=== PATIENT | female | born 1945 | race Caucasian/White ===

== ENCOUNTER 2016-12-26 11:55 | Observation (INO) | payer OTHER ==
[2016-12-26 12:39] LABS: BASOPHIL 1.4 % (0-2.0); EOSINOPHIL 4.2 % (0-4.5); MCH 33.1 pg (25.7-33.7); MCHC 34.2 g/dl (32.0-36.0); MEAN CELL VOLUME 96.8 fl (80-96); MEAN PLT VOLUME 8.1 fl (7.5-11.1); NEUTROPHILS 51.5 % (42.8-82.8); PLATELET COUNT 210 K/MM3 (134-434); RDW 12.3 % (11.6-15.6); WHITE BLOOD COUNT 6.4 K/mm3 (4.0-10.0)
[2016-12-26] MEDS ORDERED: ACETAMINOPHEN 325 MG TABLET (FP) PO ONE (12:44)
--- NOTE | 2016-12-26 12:45 | PDOC ---
History of Present Illness - General History Source: Patient Exam Limitations: No Limitations - History of Present Illness Initial Comments: 12/26/16 12:53 The patient is a 71-year-old woman, accompanied by son, with a significant past medical history of hypertension, hypercholesterolemia, atrial fibrillation and brain aneurysm s/p clipping (09/2015) who presents to the emergency department via for further evaluation of right wrist and ankle pain status post walk this morning. No head injury and loss of consciousness. As per patient, she woke up in her usual state of health this morning, when she proceeded to do laundry. She was stepping out of the laundry room, got distracted looking at her neighbors decorations, when she missed a step and fell on her right side. She states that she called her son and was able to ambulate to the car and proceed to the ER. Pt states she was feeling well this morning otherwise, denies any headache, dizziness, cp, sob, palpitations, f/c, cough, diarrhea, melena/bpr. Upon ER arrival, at triage, the patient was noted to be lightheaded and bradycardic to 47 bpm and hypotensive to 60/40. As per patient, since her brain aneurysm, she had been compliant with her rehabilitation and has been asymptomatic. She denies any recent fevers, chills, generalized weakness, chest pain, dizziness, visual changes, headache, cough, shortness of breath, nausea, vomiting. Allergies: Quinidine Past Surgical History: Hysterectomy. Social History: No tobacco, ETOH and recreational drug use. Primary Care Physician: Dr. Ankush Perry [phone]/ Student Success Advisor: Dr. Howe (Affiliated with [facility]) <Maren Arndt - Last Filed: 12/26/16 14:19> <Rolando Alegre - Last Filed: 12/26/16 16:18> <Nicolás Fitch - Last Filed: 12/26/16 16:28> - General Chief Complaint: Injury Stated Complaint: FALL/ RT WRIST PAIN, DISORIENTED Time Seen by Provider: 12/26/16 12:13 Past History <Maren Arndt - Last Filed: 12/26/16 14:19> - Past Medical History Cardiac Disorders: Yes (PALPITATIONS, NEGATIVE NUCLEAR STRESS TEST,a.fib) GI Disorders: Yes (GERD, PUD 1994. BLOOD TRANSFUSION) HTN: Yes Other medical history: ruptured brain aneurysm - Surgical History Neurologic Surgery: Yes (brain aneurysm) - Psycho/Social/Smoking Cessation Hx Anxiety: No Suicidal Ideation: No Smoking History: Unknown if ever smoked Have you smoked in the past 12 months: No If you are a former smoker, when did you quit?: 27 YEARS AGO Information on smoking cessation initiated: No Hx Alcohol Use: No Drug/Substance Use Hx: No Substance Use Type: None Hx Substance Use Treatment: No <SisBijuRolando - Last Filed: 12/26/16 16:18> <Nicolás Fitch - Last Filed: 12/26/16 16:28> - Past Medical History Allergies/Adverse Reactions: Allergies Allergy/AdvReac Type Severity Reaction Status Date / Time quinidine Allergy Mild Rash Verified 12/26/16 12:02 Home Medications: Ambulatory Orders Apixaban [Eliquis] 5 mg PO BID 12/26/16 Diltiazem Cd [Cardizem Cd -] 240 mg PO DAILY 12/26/16 Levetiracetam [Keppra Xr -] 500 mg PO DAILY 12/26/16 Metoprolol Succinate [Toprol Xl] 100 mg PO BID 12/26/16 Review of Systems - Review of Systems Able to Perform ROS?: Yes Comments:: 12/26/16 12:54 CONSTITUTIONAL: No reported: Fever, Chills, Diaphoresis, Generalized Weakness, Malaise, Loss of Appetite HEENT: No reported: Rhinorrhea, Nasal Congestion, Throat Pain, Throat Swelling, Difficulty Swallowing, Mouth Swelling, Ear Pain, Eye Pain, Visual Changes CARDIOVASCULAR: No reported: Chest Pain, Syncope, Palpitations, Irregular Heart Rate, Lightheadedness, Peripheral Edema RESPIRATORY: No reported: Cough, Shortness of Breath, SOB with Exertion, Orthopnea, Wheezing , Stridor, Hemoptysis GASTROINTESTINAL: No reported: Abdominal pain, Abdominal Distension, Nausea, Vomiting, Diarrhea, Constipation, Melena, Hematochezia GENITOURINARY: No reported: Dysuria, Frequency, Urgency, Hesitancy, Flank Pain, Genital Pain MUSCULOSKELETAL: Reported: Arthralgia No reported: Myalgia, Joint Swelling, Back pain, Neck Pain SKIN: No reported: Rash, Itching, Pallor HEMEATOLOGIC/IMMUNOLOGIC: No reported: Easy Bleeding, Easy Bruising, Lymphadenopathy, Frequent infections ENDOCRINE: No reported: Unexplained Weight Gain, Unexplained Weight Loss, Heat Intolerance , Cold Intolerance NEUROLOGIC: No reported: Headache, Focal Weakness, Paresthesias, Vertigo, Lightheadedness, Unsteady Gait, Seizure, Mental Status Changes, Incontinence PSYCHIATRIC: No reported: Anxiety, Depression <Arndt,Maren - Last Filed: 12/26/16 14:19> *Physical Exam - Vital Signs Last Vital Signs Temp Pulse Resp BP Pulse Ox 98.4 F 47 L 18 104/49 100 12/26/16 12:04 12/26/16 12:04 12/26/16 12:04 12/26/16 12:04 12/26/16 12:04 - Physical Exam Comments: 12/26/16 12:54 GENERAL: The patient is awake, alert, and fully oriented, Nontoxic - in no acute distress. HEAD: Normocephalic, atraumatic. EYES: extraocular movements intact, sclera anicteric, conjunctiva clear. BACK: No tenderness to cervical/throaicic/lumbar spine ENT: Normal voice, Moist mucous membranes. NECK: Normal range of motion, supple LUNGS: Breath sounds equal, clear to auscultation bilaterally. No wheezes, no rhonchi, no rales. HEART: irregular, bradycardic ABDOMEN: Soft, nontender, normoactive bowel sounds. No guarding, no rebound.No CVA tenderness EXTREMITIES: TTP with swelling to R wrist, and pain with ROM abrasion to volar aspect of R wrist and R pinky, no tenderness in the hand/fingers and no limitations of ROM of hand/fingers, +mild tenderness to the latareal right 5the metatarsal foot/ankle, normal ROM of other joints (shoulder/elbow b/l, L hand, b/l hips/knee/ankle) NEUROLOGICAL: No facial assymetry, Normal speech, movinga ll 4 extremities spontnaoeelys and symmetrically. n/v intact throughout. PSYCH: Normal mood, normal affect. SKIN: Warm, Dry, normal turgor. <Arndt,Maren - Last Filed: 12/26/16 14:19> - Vital Signs Last Vital Signs Temp Pulse Resp BP Pulse Ox 98.4 F 47 L 18 104/49 100 12/26/16 12:04 12/26/16 12:04 12/26/16 12:04 12/26/16 12:04 12/26/16 12:04 <Rolando Alegre - Last Filed: 12/26/16 16:18> - Vital Signs Last Vital Signs Temp Pulse Resp BP Pulse Ox 98.4 F 47 L 18 104/49 100 12/26/16 12:04 12/26/16 12:04 12/26/16 12:04 12/26/16 12:04 12/26/16 12:04 <Nicolás Fitch - Last Filed: 12/26/16 16:28> Procedures - Splinting Splint Location: Right: Wrist (volar splitn placed) Pre-Proc Neuro Vasc Exam: normal Splint Type: Yes: Volar Post-Proc Neuro Vasc Exam: normal Andres Bandage: 4" Sling: Yes Complications: No <Nicolás Fitch - Last Filed: 12/26/16 16:28> Heart Score/ECG Review - ECG Impressions Comment:: 12/26/16 12:46 Twelve-lead EKG was performed and reviewed by me. There is normal sinus rhythm with a rate of 56 The axis is normal. The intervals are normal. There is abnormal R wave progression There are no ST or T wave abnormalities. <Rolando Alegre - Last Filed: 12/26/16 16:18> ED Treatment Course - LABORATORY CBC & Chemistry Diagram: 12/26/16 12:10 12/26/16 12:10 - ADDITIONAL ORDERS Additional order review: 12/26/16 12:10 RBC 3.61 MCV 96.8 H MCHC 34.2 RDW 12.3 MPV 8.1 Neutrophils % 51.5 Lymphocytes % 35.5 D Monocytes % 7.4 Eosinophils % 4.2 D Basophils % 1.4 - Medications Given in the ED: ED Medications Discontinued Medications Generic Name Dose Route Start Last Admin Trade Name Vikasq PRN Reason Stop Dose Admin Acetaminophen 650 mg 12/26/16 12:44 12/26/16 12:52 Tylenol - PO 12/26/16 12:45 650 mg ONCE ONE Administration <Maren Arndt - Last Filed: 12/26/16 14:19> - LABORATORY CBC & Chemistry Diagram: 12/26/16 12:10 12/26/16 12:10 - RADIOLOGY Radiology Studies Ordered: Category Date Time Status ANKLE & FOOT-LEFT* [RAD] Stat Radiology 12/26/16 12:37 Ordered WRIST W/HAND-RIGHT* [RAD] Stat Radiology 12/26/16 12:37 Ordered <Rolando Alegre - Last Filed: 12/26/16 16:18> - LABORATORY CBC & Chemistry Diagram: 12/26/16 12:10 12/26/16 12:10 - ADDITIONAL ORDERS Additional order review: Laboratory Results 12/26/16 12/26/16 12/26/16 12:10 12:10 12:10 INR 1.24 H Sodium 143 Potassium 4.1 D Chloride 106 Carbon Dioxide 28 Anion Gap 9 BUN 22 H Creatinine 0.9 Creat Clearance w eGFR > 60 Random Glucose 117 H D Calcium 8.4 L Total Bilirubin 0.3 D AST 11 L D ALT 16 D Alkaline Phosphatase 72 Creatine Kinase 61 Troponin I < 0.02 Total Protein 6.3 L Albumin 3.4 Blood Type A POSITIVE Antibody Screen Negative 12/26/16 12:10 RBC 3.61 MCV 96.8 H MCHC 34.2 RDW 12.3 MPV 8.1 Neutrophils % 51.5 Lymphocytes % 35.5 D Monocytes % 7.4 Eosinophils % 4.2 D Basophils % 1.4 - Medications Given in the ED: ED Medications Discontinued Medications Generic Name Dose Route Start Last Admin Trade Name Freq PRN Reason Stop Dose Admin Acetaminophen 650 mg 12/26/16 12:44 12/26/16 12:52 Tylenol - PO 12/26/16 12:45 650 mg ONCE ONE Administration <Nicolás Fitch - Last Filed: 12/26/16 16:28> Medical Decision Making - Medical Decision Making 12/26/16 12:39 71y F hx of aneurysm s/p clipping, afib on eliquis and metoprolol, presents s/p fall - was noted to be bradycardic and hyptonsive in triage and presents to the ED s/p mechanical fall - pt states she wa felling well prior to her fall and pt endorses missing a step when she was looking up at decoration - pt denies any head injury, loc, back pain, neuro sypmtoms andher pain is primarily in her L wrist and R ankle no head injury nmeck pain, back pain or signs of trauma/loc - will defer CT head , cspine will obtain xrays of her wrist/ankle will ck ekg will ck la work and will give pt fluids will reassess A portion of this note was documented by scribe services under my direction. I have reviewed the details of the note, within reason, and agree with the documentation with the following case summary and management plan written by me 12/26/16 12:47 12/26/16 14:52 xrays cw impacted radial fx of R wrist also noted for fx on R 5th metatarsal fx unsfe d/c will admit for further management page placed to dr suarez and dr. ibarra 12/26/16 15:[address] suarez agree with admission for further management will discuss with dr. ibarra - if planned for surgery will admit otherwise will observe. Case discussed in detail with admitting physician including history, physical exam and ancillary studies. Admitting physician has assumed care for the patient, will follow all pending diagnostics and will complete the evaluation and treatment. <Rolando Alegre - Last Filed: 12/26/16 16:18> - Medical Decision Making 12/26/16 16:26 Ortho at bedside, rec volar splint and for pt to f/u for possible surgery. Hard sole shoe placed for fx to proximal R 5th metatarsal 12/26/16 16:27 <Nicolás Fitch - Last Filed: 12/26/16 16:28> *DC/Admit/Observation/Transfer - Attestations Scribe Attestion: 12/26/16 12:54 Documentation prepared by Maren Arndt, acting as medical editor for Rolando Alegre MD. <Maren Arndt - Last Filed: 12/26/16 14:19> - Discharge Dispostion Admit: Yes <Rolando Alegre - Last Filed: 12/26/16 16:18> <Nicolás Fitch - Last Filed: 12/26/16 16:28> Diagnosis at time of Disposition: Wrist fracture, right Qualifiers: Encounter type: initial encounter Fracture type: closed Qualified Code(s): S62.101A - Fracture of unspecified carpal bone, right wrist, initial encounter for closed fracture Fracture of 5th metatarsal Qualifiers: Encounter type: initial encounter Fracture type: closed Fracture alignment: nondisplaced Laterality: right Qualified Code(s): S92.354A - Nondisplaced fracture of fifth metatarsal bone, right foot, initial encounter for closed fracture - Discharge Dispostion Condition at time of disposition: Stable - Referrals
[2016-12-26] MEDS ORDERED: ACETAMINOPHEN 325 MG TABLET (FP) ONE (12:52)
[2016-12-26 13:02] LABS: INR 1.24 (0.82-1.09); PROTHROMBIN TIME (PATIENT) 13.7 SEC (9.98-11.88)
[2016-12-26 13:09] LABS: ALBUMIN 3.4 g/dl (3.4-5.0); ALK PHOS 72 U/L (45-117); ANION GAP 9 (8-16); BILIRUBIN,TOTAL 0.3 mg/dL (0.2-1.0); CALCIUM 8.4 mg/dL (8.5-10.1); CO2 28 mmol/L (21-32); CREATININE 0.9 mg/dL (0.55-1.02); GLUCOSE,RANDOM 117 mg/dL (74-106); SGPT/ALT 16 U/L (12-78); TOT PROT 6.3 g/dl (6.4-8.2)
[2016-12-26 13:11] LABS: TROPONIN I < 0.02 ng/ml (0.00-0.05)
[2016-12-26 13:13] LABS: SGOT/AST 11 U/L (15-37)
[2016-12-26] MEDS ORDERED: ONDANSETRON 4 MG/2 ML VIAL IVPB PRN (16:17)
--- NOTE | 2016-12-26 16:19 | HP ---
Admitting History and Physical - Primary Care Physician PCP: Ankush Perry - Admission Chief Complaint: I fell History of Present Illness: Ms Crow is a very pleasant 71 year old female who came in secondary to a fall. She was walking down the stairs and misjudged the last step. She fell and hit her right side. She did not hit her head. She says it was purely mechanical, she was not lightheaded or passed out. After this she felt significant pain in her R side and could not walk. Because of this she came in. She denies fevers, chills, chest pain, shortness of breath, nausea, vomiting, diarrhea, constipation, difficulty or pain on urination, or swelling. She is still having pain but it is better controlled. History Source: Patient Limitations to Obtaining History: No Limitations - Past Medical History Cardiovascular: Yes: AFIB, HTN Gastrointestinal: Yes: GERD - Past Surgical History Past Surgical History: Yes: Hysterectomy Additional Past Surgical History: Cerebral aneurysm repair after rupture - Smoking History Smoking history: Former smoker Have you smoked in the past 12 months: No If you are a former smoker, when did you quit?: 27 YEARS AGO - Alcohol/Substance Use Hx Alcohol Use: No History of Substance Use: reports: None - Social History ADL: Independent History of Recent Travel: No Home Medications - Allergies Allergies/Adverse Reactions: Allergies Allergy/AdvReac Type Severity Reaction Status Date / Time quinidine Allergy Mild Rash Verified 12/26/16 12:02 - Home Medications Home Medications: Ambulatory Orders Apixaban [Eliquis] 5 mg PO BID 12/26/16 Diltiazem Cd [Cardizem Cd -] 240 mg PO DAILY 12/26/16 Levetiracetam [Keppra Xr -] 500 mg PO DAILY 12/26/16 Metoprolol Succinate [Toprol Xl] 100 mg PO BID 12/26/16 Family Disease History - Family Disease History Family Disease History: CA: Father Review of Systems Findings/Remarks: full review of systems obtained, as per HPI and otherwise negative Physical Examination Vital Signs: Vital Signs Temperature 98.4 F 12/26/16 12:04 Pulse Rate 47 L 12/26/16 12:04 Respiratory Rate 18 12/26/16 12:04 Blood Pressure 104/49 12/26/16 12:04 O2 Sat by Pulse Oximetry (%) 100 12/26/16 12:04 Constitutional: Yes: Well Nourished, No Distress, Calm Eyes: Yes: Conjunctiva Clear, EOM Intact HENT: Yes: Atraumatic, Normocephalic Cardiovascular: Yes: Pulse Irregular. No: Bradycardia, Tachycardia, Gallop, Murmur, Rub Respiratory: Yes: Regular, CTA Bilaterally. No: Rales, Rhonchi, Wheezes Gastrointestinal: Yes: Normal Bowel Sounds, Soft. No: Distention, Tenderness Extremities: Yes: WNL Edema: No Labs: Laboratory Results - last 24 hr 12/26/16 12/26/16 12/26/16 12:10 12:10 12:10 WBC 6.4 RBC 3.61 Hgb 11.9 Hct 35.0 MCV 96.8 H MCHC 34.2 RDW 12.3 Plt Count 210 MPV 8.1 Neutrophils % 51.5 Lymphocytes % 35.5 D Monocytes % 7.4 Eosinophils % 4.2 D Basophils % 1.4 INR 1.24 H Sodium 143 Potassium 4.1 D Chloride 106 Carbon Dioxide 28 Anion Gap 9 BUN 22 H Creatinine 0.9 Creat Clearance w eGFR > 60 Random Glucose 117 H D Calcium 8.4 L Total Bilirubin 0.3 D AST 11 L D ALT 16 D Alkaline Phosphatase 72 Creatine Kinase 61 Troponin I < 0.02 Total Protein 6.3 L Albumin 3.4 Blood Type Antibody Screen 12/26/16 12:10 WBC RBC Hgb Hct MCV MCHC RDW Plt Count MPV Neutrophils % Lymphocytes % Monocytes % Eosinophils % Basophils % INR Sodium Potassium Chloride Carbon Dioxide Anion Gap BUN Creatinine Creat Clearance w eGFR Random Glucose Calcium Total Bilirubin AST ALT Alkaline Phosphatase Creatine Kinase Troponin I Total Protein Albumin Blood Type A POSITIVE Antibody Screen Negative Imaging - Results Chest X-ray: Report Reviewed, Image Reviewed X-ray: Report Reviewed Problem List - Problems (1) Fall Assessment/Plan: -mechanical -no syncope, head trauma, or loss of consciousness -admit under observation -PT consult Code(s): W19.XXXA - UNSPECIFIED FALL, INITIAL ENCOUNTER Qualifiers: Encounter type: initial encounter Qualified Code(s): W19.XXXA - Unspecified fall, initial encounter (2) Fracture of 5th metatarsal Assessment/Plan: -ortho consulted and await recommendations Code(s): S92.353A - DISP FX OF FIFTH METATARSAL BONE, UNSP FOOT, INIT Qualifiers: Encounter type: initial encounter Fracture type: closed Fracture alignment: nondisplaced Laterality: right Qualified Code(s): S92.354A - Nondisplaced fracture of fifth metatarsal bone, right foot, initial encounter for closed fracture (3) Wrist fracture, right Assessment/Plan: -ortho consulted and await recommendations Code(s): S62.101A - FRACTURE OF UNSP CARPAL BONE, RIGHT WRIST, INIT FOR CLOS FX Qualifiers: Encounter type: initial encounter Fracture type: closed Qualified Code(s): S62.101A - Fracture of unspecified carpal bone, right wrist, initial encounter for closed fracture (4) HTN (hypertension) Assessment/Plan: -continue metoprolol and cardizem with hold precautions Code(s): I10 - ESSENTIAL (PRIMARY) HYPERTENSION (5) Atrial fibrillation Assessment/Plan: -rate controlled -holding eliquis secondary to possible surgery -continue metoprolol and cardizem -no need for telemetry Code(s): I48.91 - UNSPECIFIED ATRIAL FIBRILLATION Qualifiers: Atrial fibrillation type: chronic Qualified Code(s): I48.2 - Chronic atrial fibrillation (6) Subarachnoid hemorrhage Assessment/Plan: -history -no head trauma and normal exam Code(s): I60.9 - NONTRAUMATIC SUBARACHNOID HEMORRHAGE, UNSPECIFIED
--- NOTE | 2016-12-26 16:57 | PN ---
Progress Note (short form) - Note Progress Note: Pt seen and examined in the ER. She uis a 71 right hand dom Female who fell a few hours ago onto her right arm. She c/o severe pain in the right wrist, moderate pain in the right foot. She is on Eliquis anticoagulant, last took it yesterday, for a cerebral aneurysm. PE Right wrist is mildly deformed, moderately swollen NVI, good ROM throughout + tender over wrist Right foot is mildly swollen + tender over base of 4th and 5th MT Good ROM Grossly NVI Xrays Right wrist show a comminuted, displaced, intra articular distal radius fracture Right foot show a nondisplaced fx at the base of the 4th and 5th MT Imp Right distal radius fracture, displaced, intra articular, comminuted Right foot fractures at the base of the 4th and the 5th MTs Rec Post op shoe for foot, WBAT, cane in left hand Provisional reduction performed in ER, volar splint applied Strict elevation, stop eliquis if possible immediately Can DC home F/u in 3 days, will do xrays then, possible closed reduction and casting or may be indicated for surgery when swelling is down, and off Eliquis
[2016-12-26] MEDS ORDERED: OXYCODONE/APAP 5/325MG COMBO TABLET PO ONE (17:16)
[2016-12-26] MEDS ORDERED: OXYCODONE/APAP 5/325MG COMBO TABLET ONE (18:08)
[2016-12-26 19:06] VITALS: BMI 27.1
[2016-12-26] MEDS: DOCUSATE SODIUM 100 MG CAPSULE (FP) PO SCH (21:04)
[2016-12-26] MEDS: METOPROLOL SUCCINATE 100 MG TAB.SR.24H (FP) PO SCH (21:04)
[2016-12-26] MEDS ORDERED: APIXABAN 5 MG TABLET PO SCH (22:00)
[2016-12-26] MEDS: ACETAMINOPHEN 325 MG TABLET (FP) PO PRN (22:23)
[2016-12-26] MEDS: oxyCODONE HCL 5 MG TABLET PO PRN (22:24)
[2016-12-27] MEDS: oxyCODONE HCL 5 MG TABLET PO PRN (05:48)
[2016-12-27] MEDS: ACETAMINOPHEN 325 MG TABLET (FP) PO PRN (05:49)
[2016-12-27 05:50] VITALS: TEMP 97.9
[2016-12-27 07:24] LABS: BASOPHIL 0.4 % (0-2.0); EOSINOPHIL 0.7 % (0-4.5); MCH 32.7 pg (25.7-33.7); MCHC 34.1 g/dl (32.0-36.0); MEAN CELL VOLUME 95.9 fl (80-96); MEAN PLT VOLUME 8.1 fl (7.5-11.1); NEUTROPHILS 75.5 % (42.8-82.8); PLATELET COUNT 176 K/MM3 (134-434); RDW 12.5 % (11.6-15.6); WHITE BLOOD COUNT 8.9 K/mm3 (4.0-10.0)
[2016-12-27 08:07] LABS: CALCIUM 8.4 mg/dL (8.5-10.1); CREATININE 0.8 mg/dL (0.55-1.02); MAGNESIUM 2.2 mg/dL (1.8-2.4); PHOSPHOROUS 3.4 mg/dL (2.5-4.9)
[2016-12-27] MEDS ORDERED: levETIRAcetam XR 500 MG TAB PO SCH (10:00)
[2016-12-27] MEDS ORDERED: POLYETHYLENE GLYCOL 3350 119 GM BTL PO SCH (10:00)
[2016-12-27] MEDS: DOCUSATE SODIUM 100 MG CAPSULE (FP) PO SCH (10:15)
[2016-12-27] MEDS: METOPROLOL SUCCINATE 100 MG TAB.SR.24H (FP) PO SCH (10:16)
--- NOTE | 2016-12-27 11:02 | EKG ---
Test Reason : Blood Pressure : / mmHG Vent. Rate : 056 BPM Atrial Rate : 056 BPM P-R Int : 196 ms QRS Dur : 088 ms QT Int : 446 ms P-R-T Axes : 030 -11 012 degrees QTc Int : 430 ms SINUS BRADYCARDIA WITH PREMATURE ATRIAL COMPLEXES POSSIBLE ANTERIOR INFARCT , AGE UNDETERMINED ABNORMAL ECG WHEN COMPARED WITH ECG OF 10-OCT-2015 12:14, QT HAS SHORTENED Confirmed by NÉSTOR KEARNEY, VISHNU ([id number]) on 12/27/2016 11:02:06 AM Referred By: Confirmed By:VISHNU PALM MD
--- NOTE | 2016-12-27 11:50 | DS ---
Physical Examination Vital Signs: Vital Signs Temperature 97.9 F 12/27/16 05:48 Pulse Rate 60 12/27/16 05:48 Respiratory Rate 20 12/27/16 05:48 Blood Pressure 138/68 12/27/16 05:48 O2 Sat by Pulse Oximetry (%) 96 12/27/16 00:18 Constitutional: Yes: Well Nourished, No Distress, Calm Cardiovascular: Yes: Regular Rate and Rhythm. No: Gallop, Murmur, Rub Respiratory: Yes: Regular, CTA Bilaterally. No: Rales, Rhonchi, Wheezes Gastrointestinal: Yes: Normal Bowel Sounds, Soft. No: Distention, Tenderness Extremities: Yes: Other (R arm in sling) Edema: No Labs: CBC, BMP 12/27/16 06:35 12/27/16 06:35 Discharge Summary Reason For Visit: FX RT WRIST,FX OF FIFTH METATARSAL BON Current Active Problems Atrial fibrillation (Acute) Fall (Acute) Fracture of 5th metatarsal (Acute) HTN (hypertension) (Acute) Wrist fracture, right (Acute) Hospital Course: (1) Fall Code(s): W19.XXXA - UNSPECIFIED FALL, INITIAL ENCOUNTER Qualifiers: Encounter type: initial encounter Qualified Code(s): W19.XXXA - Unspecified fall, initial encounter (2) Fracture of 5th metatarsal Code(s): S92.353A - DISP FX OF FIFTH METATARSAL BONE, UNSP FOOT, INIT Qualifiers: Encounter type: initial encounter Fracture type: closed Fracture alignment: nondisplaced Laterality: right Qualified Code(s): S92.354A - Nondisplaced fracture of fifth metatarsal bone, right foot, initial encounter for closed fracture (3) Wrist fracture, right Code(s): S62.101A - FRACTURE OF UNSP CARPAL BONE, RIGHT WRIST, INIT FOR CLOS FX Qualifiers: Encounter type: initial encounter Fracture type: closed Qualified Code(s): S62.101A - Fracture of unspecified carpal bone, right wrist, initial encounter for closed fracture (4) HTN (hypertension) Code(s): I10 - ESSENTIAL (PRIMARY) HYPERTENSION (5) Atrial fibrillation Code(s): I48.91 - UNSPECIFIED ATRIAL FIBRILLATION Qualifiers: Atrial fibrillation type: chronic Qualified Code(s): I48.2 - Chronic atrial fibrillation (6) Subarachnoid hemorrhage Code(s): I60.9 - NONTRAUMATIC SUBARACHNOID HEMORRHAGE, UNSPECIFIED Ms Crow is a very pleasant 71 year old female who came in with mechanical fall and fractures as above. She was admitted under observation. Her pain is controlled. She was seen by ortho who recommended outpatient follow up. She is to hold her eliquis until seen by orthopedic surgery. She is safe for discharge home. Condition: Good - Instructions Diet, Activity, Other Instructions: regular diet. Follow up with orthopedic surgery. Hold eliquis currently, resume per orthopedic surgeons instructions. Referrals: Ankush Perry MD [Primary Care Provider] - Edgardo Smith MD [Staff Physician] - Disposition: HOME - Home Medications Comprehensive Discharge Medication List: Ambulatory Orders Apixaban [Eliquis] 5 mg PO BID 12/26/16 Diltiazem Cd [Cardizem Cd -] 240 mg PO DAILY 12/26/16 Levetiracetam [Keppra Xr -] 500 mg PO DAILY 12/26/16 Metoprolol Succinate [Toprol Xl] 100 mg PO BID 12/26/16 Docusate Sodium [Colace -] 100 mg PO BID capsule 12/27/16 Oxycodone HCl [Roxicodone -] 5 mg PO Q4H PRN #30 tablet MDD 20mg 12/27/16 Polyethylene Glycol 3350 [Miralax 119 gm Btl -] 17 gm PO DAILY bottle 12/27/16
[2016-12-27 12:00] VITALS: BP 135/67; PULSE 66
== END 2016-12-27 12:27 | disposition home or self-care (01) ==
LOC: JER 11:55 → JERBED 15:11 → J6S 20:32
PROVIDERS: ADMIT Internal Medicine; ATTEND Internal Medicine
PROC: 2W3CX1Z Immobilization of Right Lower Arm using Splint (ICD-10-PCS; principal; 2016-12-26)
DX: S62.101A Fracture of unspecified carpal bone, right wrist, initial encounter for closed fracture (principal); S52.591A Other fractures of lower end of right radius, initial encounter for closed fracture; S92.344A Nondisplaced fracture of fourth metatarsal bone, right foot, initial encounter for closed fracture; S92.354A Nondisplaced fracture of fifth metatarsal bone, right foot, initial encounter for closed fracture; I10 Essential (primary) hypertension; K21.9 Gastro-esophageal reflux disease without esophagitis; I48.91 Unspecified atrial fibrillation; I60.9 Nontraumatic subarachnoid hemorrhage, unspecified; W10.8XXA Fall (on) (from) other stairs and steps, initial encounter; Y93.89 Activity, other specified; Y92.098 Other place in other non-institutional residence as the place of occurrence of the external cause; Z87.891 Personal history of nicotine dependence
CPT/HCPCS: 36415; 71010-TC; 73110-TC-RT; 73130-TC-RT; 73610-TC-RT; 73630-TC-RT; 80048; 80053; 82550; 83735; 84100; 84484; 85025; 85610; 86850; 86900; 86901; 93005; 93010; 97116-GP; 97161-GP; 99285-25; G0378

== ENCOUNTER 2017-01-04 05:55 | Day surgery (SDC) | payer OTHER ==
[2017-01-02 13:33] VITALS: BMI 27.4
[2017-01-04] MEDS ORDERED: MIDAZOLAM HCL 2 MG/2 ML SINGLE DOSE VIAL ONE (06:50)
[2017-01-04] MEDS ORDERED: DEXAMETHASONE SOD PHOSPHATE/PF 10 MG/ML SDV ONE (06:50)
[2017-01-04] MEDS ORDERED: ROPIVACAINE HCL 0.5% 30ML VIAL ONE (06:51)
[2017-01-04] MEDS ORDERED: LACTATED RINGERS SOLUTION 1,000 ML IV SCH (11:00)
[2017-01-04] MEDS ORDERED: ACETAMINOPHEN 325 MG TABLET (FP) PO PRN (11:05)
[2017-01-04] MEDS ORDERED: oxyCODONE HCL 5 MG TABLET PO PRN ×2 (11:11→11:12)
[2017-01-04] MEDS ORDERED: ONDANSETRON 4 MG/2 ML VIAL IVPUSH PRN (11:11)
[2017-01-04 11:46] VITALS: BP 130/72; PULSE 58; TEMP 98.2
--- NOTE | 2017-01-05 08:57 | OP ---
DATE OF OPERATION: 01/04/2017 PREOPERATIVE DIAGNOSIS: Right comminuted intraarticular displaced distal radius fracture. POSTOPERATIVE DIAGNOSIS: Right comminuted intraarticular displaced distal radius fracture. OPERATIVE PROCEDURE: 1. Open reduction internal fixation of right comminuted intraarticular displaced distal radius fracture with internal fixation of 3 or more fragments. 2. Right brachioradialis tenotomy. SURGEON: Abiola Lee MD STEWARD/STEWARDESS SECOND: GERSON Acuna ANESTHESIA: Regional. COMPLICATIONS: None. ESTIMATED BLOOD LOSS: Minimal. INDICATIONS FOR PROCEDURE: The patient is a 71-year-old female with the above findings, indicated for operative treatment. The risks, benefits, and alternatives were discussed with the patient at length, and proper informed consent was obtained. DESCRIPTION OF PROCEDURE: After proper identification of the patient and the correct operative site, the patient was brought to the operating room and placed supine on the operating table with prominences well padded. Sedation and regional anesthesia were given. Time-out procedure was performed. Intravenous antibiotics were given. Right upper extremity was prepped and draped in the usual sterile fashion. Well-padded tourniquet was placed with a sterile prep. Esmarch bandage was used to exsanguinate the right upper extremity. Tourniquet inflated to 250 mmHg. A longitudinal incision was made over the volar aspect of the wrist. Incision was taken sharply through the skin with blunt and sharp dissection through subcutaneous tissues. Flexor carpi radialis tendon along with the contents of the carpal canal was bluntly and gently retracted in ulnarward direction for the remainder of the procedure. Pronator quadratus was divided longitudinally and elevated off the distal radius. A highly comminuted displaced fracture of the distal radius was noted with significant intraarticular extension especially on the radial aspect. As the radial styloid fragment was in 3 pieces, a brachioradialis tenotomy was necessary to reduce this fragment. This was done in a subperiosteal fashion. The fracture fragments were then reduced into anatomic position and held with an Acumed Acu-Loc distal radius plate with distal locking screws and proximal nonlocking screws. This provided secure stable fixation of the fracture and was confirmed radiographically and visually. During wrist manipulation, there was full range of motion achieved and no motion of the fracture site. Distal radioulnar joint and scapholunate interval were stable to stress examination. Wound was irrigated with saline and repaired with 4-0 Vicryl and 4-0 Monocryl sutures in a layered fashion including the pronator quadratus, which was repaired loosely. Steri-Strips and sterile dressings were applied, wrist splint were placed. The patient was reversed from anesthesia and brought to the recovery room in stable condition. She tolerated the procedure well. Irineo Ramires, the interior design assistant, was integral throughout this procedure. This procedure could not have been performed without a skilled operative interior design assistant. The interior design assistant was necessary throughout the procedure to hold and manipulate fragments or to assist in placing implants which could not have been performed by the writer technical publications or other OR personnel. . ABIOLA LEE M.D. [id number]
== END 2017-01-04 11:40 | disposition home or self-care (01) ==
LOC: FASU 05:55
PROVIDERS: ATTEND Orthopaedic Surgery Hand Surgery
PROC: 0LN50ZZ Release Right Lower Arm and Wrist Tendon, Open Approach (ICD-10-PCS; 2017-01-04)
PROC: 0PSH04Z Reposition Right Radius with Internal Fixation Device, Open Approach (ICD-10-PCS; principal; 2017-01-04 08:00)
DX: S52.531A Colles' fracture of right radius, initial encounter for closed fracture (principal); X58.XXXA Exposure to other specified factors, initial encounter; Y93.9 Activity, unspecified; Y92.9 Unspecified place or not applicable
CPT/HCPCS: 73110-TC-RT